=== PATIENT | female | born 1985 | race Hispanic/Latino ===

== ENCOUNTER 2017-10-29 10:50 | Observation (INO) | payer MEDICAID ==
[~2017-10-29] VITALS: Ht 152.4 cm; Wt 120.2 kg
[2017-10-29] MEDS ORDERED: LACTATED RINGERS 1000ML 1,000 ML IV SCH (11:15)
== END 2017-10-29 13:00 | disposition home or self-care (01) ==
LOC: LDH 10:50
PROVIDERS: ADMIT Specialist; ATTEND Specialist
DX: O26.893 Other specified pregnancy related conditions, third trimester (principal); R10.2 Pelvic and perineal pain; Z3A.30 30 weeks gestation of pregnancy; Z86.32 Personal history of gestational diabetes
CPT/HCPCS: G0378 ×3; 96360

== ENCOUNTER 2017-11-17 11:41 | Inpatient (IN) | payer MEDICAID ==
[~2017-11-17] VITALS: Ht 152.4 cm; Wt 121.6 kg
[2017-11-17] MEDS: DEXAMETHASONE SOD PHOSPHATE 4 MG/ML 1ML VIAL IM SCH ×2 (15:40→20:00)
[2017-11-17] MEDS ORDERED: PHARMACY COMMUNICATION MISC SCH (17:30)
[2017-11-17] MEDS: METRONIDAZOLE 500 MG TABLET PO SCH (21:17)
[2017-11-18] MEDS ORDERED: TERBUTALINE SULFATE VIAL 1MG/ML SQ ONE (00:13)
[2017-11-18] MEDS: DEXAMETHASONE SOD PHOSPHATE 4 MG/ML 1ML VIAL IM SCH ×5 (00:15→19:10)
[2017-11-18] MEDS ORDERED: TERBUTALINE SULFATE VIAL 1MG/ML SQ PRN (00:30)
[2017-11-18] MEDS: SODIUM CHLORIDE 0.9% 1000ML 1,000 ML IV SCH ×3 (01:00→21:50)
[2017-11-18 11:21] VITALS: BP 130/89
[2017-11-18] MEDS ORDERED: PNV51CAP PO (12:56)
[2017-11-18] MEDS ORDERED: METR500T4 PO (12:56)
[2017-11-18] MEDS: LACTATED RINGERS 1000ML 1,000 ML IV PRN ×2 (14:19→20:20)
[2017-11-18 16:03] VITALS: BP 130/84
[2017-11-18 19:18] VITALS: BP 134/59
[2017-11-18] MEDS: METRONIDAZOLE 500 MG TABLET PO SCH ×2 (21:00→21:20)
[2017-11-18] MEDS ORDERED: DiphenhydrAMINE HCL 50 MG/ML VIAL IM PRN (21:45)
[2017-11-18 23:53] VITALS: BP 100/58
[2017-11-19 03:13] VITALS: BP 108/56
[2017-11-19] MEDS: DEXAMETHASONE SOD PHOSPHATE 4 MG/ML 1ML VIAL IM SCH ×4 (04:00→20:00)
[2017-11-19] MEDS: SODIUM CHLORIDE 0.9% 1000ML 1,000 ML IV SCH ×3 (04:26→18:20)
[2017-11-19 08:01] VITALS: BP 119/70
[2017-11-19] MEDS: METRONIDAZOLE 500 MG TABLET PO SCH ×4 (09:00→21:07)
[2017-11-19] MEDS: PRENATAL VITAMIN RX TABLET PO SCH ×2 (10:52→10:54)
[2017-11-19 11:50] VITALS: BP 106/46
[2017-11-19 15:36] VITALS: BP 119/73
[2017-11-19 19:35] VITALS: BP 128/70
[2017-11-20 00:49] VITALS: BP 98/64
[2017-11-20] MEDS: SODIUM CHLORIDE 0.9% 1000ML 1,000 ML IV SCH (01:22)
[2017-11-20] MEDS: DEXAMETHASONE SOD PHOSPHATE 4 MG/ML 1ML VIAL IM SCH ×4 (04:00→12:00)
[2017-11-20 04:40] VITALS: BP 111/48
[2017-11-20 07:56] VITALS: BP 127/76
[2017-11-20] MEDS: METRONIDAZOLE 500 MG TABLET PO SCH (08:57)
[2017-11-20] MEDS: PRENATAL VITAMIN RX TABLET PO SCH (09:00)
[2017-11-20 11:20] VITALS: BP 121/71
[2017-11-20 15:29] VITALS: BP 120/72
[2017-11-20 19:19] VITALS: BP 132/83
[2017-11-21 00:43] VITALS: BP 105/51
[2017-11-21 04:53] VITALS: BP 108/38
[2017-11-21 07:21] VITALS: BP 126/72
[2017-11-21] MEDS: METRONIDAZOLE 500 MG TABLET PO SCH (09:00)
[2017-11-21] MEDS: PRENATAL VITAMIN RX TABLET PO SCH (09:00)
[2017-11-21 11:23] VITALS: BP 121/72
== END 2017-11-21 13:00 | disposition home or self-care (01) | DRG 566 ==
LOC: LDH 11:41 → OBSVTOIN 11:41 → WSH 11-18 11:54
PROVIDERS: ADMIT Specialist; ATTEND Specialist
DX: O41.03X0 Oligohydramnios, third trimester, not applicable or unspecified (principal); O24.410 Gestational diabetes mellitus in pregnancy, diet controlled; Z3A.33 33 weeks gestation of pregnancy
CPT/HCPCS: 76819; 82948; 96360; 96361; 96372; J1100; J1200; J3105; J7030; J7120